=== PATIENT | female | born 1935 | race Caucasian/White ===

== ENCOUNTER 2022-02-12 15:00 | Emergency (ER) | payer MEDICARE, SELFPAY ==
--- NOTE | ~2022-02-12 | CT_ITS ---
EXAMINATION: CT brain wo con EXAM DATE: 02/12/2022 16:00 INDICATION: head injury, on blood thinners. TECHNIQUE: Spiral CT of the head was performed without contrast. Axial, coronal and sagittal images were reviewed. The dose-length product (DLP) for this examination was 605.33 mGy-cm. The exposure w as tailored according to patient size, and iterative reconstruction (ASIR) was used as additional dos e reduction technique. There is no prior study for comparison. FINDINGS: There is left periorbital laceration and large hematoma. Mildly proteinaceous fluid in the left frontal sinus; correlate with the facial bone report same date. There is no acute intraparenchym al hemorrhage. No evidence of intraparenchymal brain mass lesion. No evidence of acute infarction. Please note that initial head CT has limited sensitivity for small or acute infarctions. There is mo derate periventricular and subcortical hypodensity, nonspecific but probably related to small vessel ischemic disease. There is moderate prominence of the sulci and ventricles related to cerebral atro phy. There is intracranial carotid arteriosclerosis. There are no extra-axial collections. There is no mass effect or midline shift. The orbits are unremarkable. Soft tissue is unremarkable. The visualized sinuses and mastoid air cells are well aerated. IMPRESSION: 1. No acute intracranial findings. 2. Chronic age related findings. 3. Left periorbital hematoma, laceration. 4. Left frontal sinus proteinaceous fluid. Reviewed, dictated and finalized at location .
--- NOTE | ~2022-02-12 | XR_ITS ---
EXAMINATION: XR shoulder RT min 2V EXAM DATE: 02/12/2022 16:18 INDICATION: Right shoulder pain, fall today, lacerations all over. TECHNIQUE: The following right shoulder projections obtained: frontal projection with internal rotati on, frontal projection with external rotation, Grashey, and scapular Y view (4+ views). There is no prior study for comparison. FINDINGS: No evidence of right shoulder rotator cuff calcific tendinosis. There is severe glenohum eral joint, severe acromioclavicular joint primary osteoarthritis. There are no acute fractures or di slocations identified. There is no subcutaneous gas. The soft tissue is unremarkable. There are n o radiopaque foreign bodies. IMPRESSION: Severe right shoulder osteoarthritis. No acute findings. Reviewed, dictated and finalized at location .
--- NOTE | ~2022-02-12 | CT_ITS ---
EXAMINATION: CT facial & cervical spine wo EXAM DATE: 02/12/2022 16:00 INDICATION: Head injury, fall. TECHNIQUE: Spiral CT of the facial bones was acquired in the axial plane. Coronal reformatted images were also reviewed. Spiral CT of the cervical spine was performed without contrast. Axial images we re reviewed. Coronal and sagittal reformatted images were also reviewed. The dose-length product (DL P) for this examination was 216.35 mGy-cm. The exposure was tailored according to patient size, and iterative reconstruction (ASIR) was used as additional dose reduction technique. Correlation is made to head CT same date. FINDINGS: FACIAL CT: There is acute closed posttraumatic nondisplaced fracture of the left superior orbital wal l into the left frontal sinus. Proteinaceous fluid within the sinus consistent with hemorrhage. There is also left inferior orbital wall fracture with mild inferior displacement which is acute. The infe rior rectus muscle maintains its intraorbital course. No maxillary sinus fluid. Slightly aspherical s hape to both globes, no evidence of volume loss/vitreous extravasation or retinal hemorrhage. Zygomat ic arches are intact. CERVICAL CT: There is no evidence of acute cervical fracture. The odontoid process is intact. Pre-d ens space is normal. Prevertebral soft tissue is normal. There are no soft tissue abnormalities ivy ntified. There is no disc space widening or traumatic vertebral body subluxation suspected. There i s advanced cervical arthropathy. There is moderate to severe disc disease C5-6 and 6-7. A detailed le tyra by level evaluation of spondylosis can be added as addendum if requested. Incidental note made of 5 cm left thyroid nodule; consider nonemergent ultrasound. IMPRESSION: 1. Acute left orbital superior wall fracture into the frontal sinus, without evidence of extension i nto the inner table, cranium. Left frontal sinus blood. 2. Acute left infraorbital blowout fracture. 3. Advanced cervical spondylosis without fracture. 4. Left periorbital swelling, laceration. 5. Large left thyroid nodule, consider nonemergent ultrasound. Reviewed, dictated and finalized at location G. IMPRESSION: 1. Acute left orbital superior wall fracture into the frontal sinus, without e vidence of extension into the inner table, cranium. Left frontal sinus blood. 2. Acute left infraorbital blowout fracture. 3. Advanced cervical spondylosis without fracture. 4. Left periorbital swelling, laceration. 5. Large left thyroid nodule, consider nonemergent ultrasound.
--- NOTE | ~2022-02-12 | XR_ITS ---
EXAMINATION: XR hip BI 2V w AP pelvis EXAM DATE: 02/12/2022 16:17 INDICATION: Fall today, generalized pain to both hips. TECHNIQUE: Each hip imaged independently (separate right and also left hip) 'frog leg' and frontal p rojections for interpretation. Frontal projection pelvis. There is no prior study for comparison. FINDINGS: No radiographic evidence of hip avascular necrosis. There is moderate symmetric bilateral hip primary osteoarthritis. There are no acute fractures or dislocations identified. There is no sub cutaneous gas. The soft tissue is unremarkable. There are no radiopaque foreign bodies. IMPRESSION: Moderate osteoarthritis, no acute fractures suspected. Reviewed, dictated and finalized at location G.
--- NOTE | ~2022-02-12 | XR_ITS ---
EXAMINATION: XR chest 1V EXAM DATE: 02/12/2022 16:19 INDICATION: fall today, history of a.fib takes medicine for it,nonsmoker TECHNIQUE: Portable AP frontal chest x-ray was obtained. There is no prior study for comparison. FINDINGS: There is moderate cardiomegaly. There is pulmonary vascular congestion. No confluent consol idation, pneumothorax or pleural effusion suspected. There is aortic arteriosclerosis. There are bon y degenerative changes. IMPRESSION: Cardiomegaly, pulmonary vascular congestion. Reviewed, dictated and finalized at location G.
[2022-02-12 15:12] VITALS: BP 169/79; PULSE 84; RESP 16; TEMP 36.8; O2SAT 98
--- NOTE | 2022-02-12 15:44 | ED.HEATRA ---
HPI - Head Injury General Chief complaint: Wound/Laceration <MARIUM Acosta Last Filed: 02/12/22 18:11> Stated complaint: fall with injury <MARIUM Acosta Last Filed: 02/12/22 18:11> Time Seen by Provider: 02/12/22 15:16 <MARIUM Acosta Last Filed: 02/12/22 18:11> Source: patient <MARIUM Acosta Last Filed: 02/12/22 18:11> Mode of arrival: EMS <MARIUM Acosta Last Filed: 02/12/22 18:11> Limitations: no limitations <MARIUM Acosta Last Filed: 02/12/22 18:11> History of Present Illness HPI Narrative: This is a 86 year old female that presents to the ER for a fall today with head injury. Reports she tripped over a mat leaving [facility]. She fell forward and hit her face on concrete. Bruising and swelling noted to the left eye. Also has a laceration to the left eyebrow. She did not lose consciousness. Denies any prodromal symptoms. Reports since she has had a headache, left eye pain, and right shoulder pain. Denies vision changes, vomiting, numbness, or weakness. <Violeta Vasquez PA-C - Last Filed: 02/12/22 18:11> Related Data Allergies/Adverse reactions: Allergies Allergy/AdvReac Type Severity Reaction Status Date / Time codeine Allergy Intermediate Palpitation Verified 02/12/22 16:34 s <Violeta Vasquez PA-C - Last Filed: 02/12/22 18:11> Review of Systems Review of Systems: CONSTITUTIONAL: Denies fever EYES: Denies visual changes GASTROINTESTINAL: Denies vomiting MUSCULOSKELETAL: Reports joint pain and myalgia. Denies back pain NEUROLOGIC: Reports headache. Denies numbness, or weakness. <MARIUM Acosta Last Filed: 02/12/22 18:11> All systems reviewed & are unremarkable except as noted in HPI and below <MARIUM Acosta Last Filed: 02/12/22 18:11> PMF Past Medical History Medical History: Medical History (Updated 02/12/22 @ 17:33 by Violeta Vasquez PA-C) History of atrial fibrillation <Violeta Vasquez PA-C - Last Filed: 02/12/22 18:11> Social History Social History: Social History (Updated 02/12/22 @ 15:47 by Violeta Vasquez PA-C) Smoking status: Never smoker <Violeta Vasquez PA-C - Last Filed: 02/12/22 18:11> Exam Narrative: GENERAL: Elderly, well-nourished, and in no acute distress. HEAD: Normocephalic EYES: PERRLA. Left eyelid ecchymosis and swelling. ENT: Nares clear, no rhinorrhea or epistaxis. Mucous membranes moist. Oropharynx without tonsillar hypertrophy exudate or other lesions. Bilateral TMs pearly lawrence non-bulging NECK: Supple. No adenopathy or masses. CHEST: Clear to auscultation. No respiratory distress. No wheezes rales or rhonchi HEART: Regular rate and rhythm. No murmur heard. Normal peripheral pulses. ABDOMEN: Soft, nontender, nondistended, normal active bowel sounds. EXTREMITIES: Normal range of motion. No edema or obvious deformity. SKIN: Warm, dry, no rash. 3 cm linear laceration in the subcutaneous tissue over the left eyebrow NEURO: No focal deficits. Alert and oriented x3. Cranial nerves II through XII grossly intact PSYCH: Normal mood and affect <Violeta Vasquez PA-C - Last Filed: 02/12/22 18:11> Course REPEATER OPERATOR/PA Physician Supervision For this patient encounter, I reviewed the REPEATER OPERATOR or PA documentation, treatment plan, and medical decision making; and I had [id number] time with this patient. <Jim Villarreal MD - Last Filed: 02/12/22 18:54> Consultations Consultation #1: Spoke with Dr. Madison about patient and workup, [facility], accepts transfer <Violeta Vasquez PA-C - Last Filed: 02/12/22 18:11> Date: 02/12/22 <Violeta Vasquez PA-C - Last Filed: 02/12/22 18:11> Vital Signs Vital signs: Vital Signs Temperature 98.3 F 02/12/22 15:12 Pulse Rate 84 02/12/22 15:12 Respiratory Rate 16 02/12/22 15:12 Blood Pressure 169/79 H 02/12/22 15:12 Pulse Oximetry 98 02/12/22 15:12 Temperature
[2022-02-12 16:35] LABS: Basophils Percent Auto 0.4 % (0.2-1.2); Eosinophils Percent Auto 0.5 % (0-4.4); Hematocrit 36.5 % (37.0-47.0); Hemoglobin 11.7 g/dL (12.0-15.0); Immature Granulocyte Absolute 0.03 K/mm3 (0.00-0.031); Immature Granulocyte Percent A 0.4 % (0-0.5); Lymphocytes Percent Auto 11.1 % (18.3-44.2); Mean Corpuscular HGB Conc 32.1 g/dl (32-36); Mean Corpuscular Hemoglobin 27.7 pg (26-34); Mean Corpuscular Volume 86.3 fl (80-100); Monocytes Absolute Auto 0.7 K/mm3 (0.1-0.6); Monocytes Percent Auto 8.8 % (2.6-8.5); Neutrophils Absolute Auto 6.4 K/mm3 (1.3-6.7); Neutrophils Percent Auto 78.8 % (45.5-73.1); Platelet Count Result 196 k/mm3 (150-375); Red Blood Count 4.23 M/mm3 (4.2-5.4); Red Cell Distribution Width 15.2 % (11.5-14.5); White Blood Count 8.1 K/mm3 (4.5-10.0)
[2022-02-12] MEDS: TETANUS,DIPHTHERIA,AC PERTUSSIS ADULT (0.5 ML) BOOSTRIX IM (16:35)
[2022-02-12] MEDS: Please add drug allergy info to patient profile. 1 EACH XX (16:36)
[2022-02-12 16:44] LABS: INR 1.3; Prothrombin Time 16.1 Seconds (11.1-14.7)
[2022-02-12 16:45] LABS: Partial Thromboplastin Time 33.5 SECONDS (22.3-36.8)
[2022-02-12 16:49] VITALS: BP 133/86; PULSE 88; RESP 16; TEMP 37.1; O2SAT 98
[2022-02-12 16:49] LABS: Anion Gap 4 mmol/L (8-16); Blood Urea Nitrogen 10 mg/dL (7-17); Calcium 8.6 mg/dL (8.4-10.2); Carbon Dioxide 29 mmol/L (22-30); Chloride 103 mmol/L (98-107); Estimated Glomerular Filt Rate > 60; Glucose 127 mg/dL (65-110); Potassium 3.3 mmol/L (3.4-5.0); Sodium 136 mmol/L (137-145)
[2022-02-12 17:52] VITALS: BP 134/80; PULSE 80; RESP 16; TEMP 36.8
== END 2022-02-12 17:55 | disposition short-term general hospital (02) ==
PROVIDERS: Physician Assistant; Emergency Provider Emergency Medicine; PCP Internal Medicine Infectious Disease
DX: S01.112A Laceration without foreign body of left eyelid and periocular area, initial encounter (principal); S02.32XA Fracture of orbital floor, left side, initial encounter for closed fracture; S02.122A Fracture of orbital roof, left side, initial encounter for closed fracture; E04.1 Nontoxic single thyroid nodule; E87.6 Hypokalemia; Z23 Encounter for immunization; I48.91 Unspecified atrial fibrillation; M47.812 Spondylosis without myelopathy or radiculopathy, cervical region; M16.0 Bilateral primary osteoarthritis of hip; M19.011 Primary osteoarthritis, right shoulder; I51.7 Cardiomegaly; W18.09XA Striking against other object with subsequent fall, initial encounter
CPT/HCPCS: 12013; 36415; 70450; 70486; 71045; 72125; 73030; 73521; 80048; 85025; 85610; 85730; 90471; 90715; 96365; 99285; J0131; L0140